=== PATIENT | male | born 1965 | race Caucasian/White ===

== ENCOUNTER 2020-11-27 15:16 | Emergency (ER) | payer OTHER ==
[~2020-11-27] VITALS: Ht 170.2 cm; Wt 76.2 kg
[2020-11-27 15:30] VITALS: BP 133/63
--- NOTE | 2020-11-27 15:38 | NUR ---
The patient bibs for cough and chills x 1 week, 99% on room air. Respiration regular and unlabored. Attached to the monitor.
--- NOTE | 2020-11-27 16:35 | NUR ---
covid swab done and sent to the lab
--- NOTE | 2020-11-27 17:48 | NUR ---
covid positive. called from lab.
[2020-11-27] MEDS ORDERED: AZIT250T PO (17:53)
--- NOTE | 2020-11-27 18:35 | NUR ---
Patient discharged to home in stable condition. Written and verbal after care instructions given. Patient verbalizes understanding of instruction.
== END 2020-11-27 18:36 | disposition home or self-care (01) ==
LOC: ER 15:42
DX: U07.1 COVID-19 (principal); J06.9 Acute upper respiratory infection, unspecified; I25.10 Atherosclerotic heart disease of native coronary artery without angina pectoris; Z95.5 Presence of coronary angioplasty implant and graft
CPT/HCPCS: 87426; 99283; C9803